=== PATIENT | female | born 1990 | race Caucasian/White ===

== ENCOUNTER 2023-03-13 07:03 | Outpatient (CLI) | payer OTHER, SELFPAY ==
--- NOTE | 2023-03-13 | MR_ITS ---
WS: [id number] MRI HEAD WITHOUT CONTRAST TECHNIQUE: Sagittal T1, T2 axial, T2 axial FLAIR, axial and coronal T1 images, axial susceptibility w eighted imaging, axial diffusion weighted images, and coronal T2 images were obtained. CLINICAL INFORMATION: HEADACHE VISUAL DISTURBANCE COMPARISON: None. FINDINGS: No evidence of restricted diffusion to suggest acute ischemia. Ventricular system and basal cisterns are patent. No suspicious intracranial signal abnormalities. Normal diamond-white differentiation. Charlene l posterior fossa. Normal vascular flow voids at the skull base. No extra-axial fluid collections. No evidence of mass or mass effect. Paranasal sinuses and mastoid air cells well aerated. Retention cys t RIGHT maxillary sinus measuring 13 mm. No hemosiderin on susceptibly weighted images. Normal optic chiasm and pituitary infundibulum. Temporal lobes and hippocampal formations are normal in appearance. Normal cavernous sinuses and Meckel's cave. Visualized orbits appear normal. Normal po sterior nasopharynx. Normal parapharyngeal fat. MR/MR head wo con* [id number] IMPRESSION: 1. No evidence of restricted diffusion to suggest acute ischemia. 2. No suspicious enhancing intracranial abnormalities. Normal diamond-white diffe rentiation. 3. No hemosiderin on susceptibly weighted images. 4. Retention cyst RIGHT maxillary sinus measuring 13.5 mm. 5. Normal optic chiasm and pituitary infundibulum. 6. Temporal lobes and hippocampal formations are normal in appearance. 7. No other suspicious findings.
== END 2023-03-13 07:04 | disposition home or self-care (01) ==
LOC: RAD 07:06
PROVIDERS: PCP Nurse Practitioner; Visit Provider Nurse Practitioner
DX: H53.10 Unspecified subjective visual disturbances (principal); R51.9 Headache, unspecified
CPT/HCPCS: 70551